=== PATIENT | female | born 1960 | race Caucasian/White ===

== ENCOUNTER 2020-09-01 22:40 | Inpatient (IN) | payer BC ==
[~2020-09-01] VITALS: Ht 152.4 cm; Wt 41.4 kg
[2020-09-01 23:55] LABS: BASOPHILS 0.3 % (0-2); EOSINOPHILS 0 % (0-7); HEMATOCRIT 44.7 % (36.0-48.0); HEMOGLOBIN 14.6 g/dL (12-16); MCH 33.7 pg (26.0-34.0); MCHC 32.6 g/dL (31.0-37.0); MCV 103.5 fL (80.0-100.0); MEAN PLATELET VOLUME 6.6 fL (7.4-10.4); MONOCYTES 4.4 % (2-11); NEUTROPHILS 61.3 % (40-80); PLATELET COUNT 443 10x3/uL (130-400); RBC 4.32 10x6/uL (4.00-5.40); RDW 12.6 % (11.5-14.5); WBC 12.4 10x3/uL (4.8-10.8)
[2020-09-02 00:01] LABS: ANION GAP 10.1 mmol/L (8-16); CALCIUM 7.4 mg/dL (8.5-10.1); CARBON DIOXIDE 28.9 mmol/L (21.0-32.0); CREATININE - SERUM 2.4 mg/dL (0.6-1.3)
[2020-09-02 00:08] LABS: ALBUMIN 2.7 g/dL (3.4-5.0); BILIRUBIN - TOTAL 0.18 mg/dL (0.2-1.3); MAGNESIUM - SERUM 2.1 mg/dL (1.8-2.4); PROTEIN - SERUM 5.6 g/dL (6.4-8.2)
--- NOTE | 2020-09-02 02:44 | NUR ---
PT REMAINS IN [facility]. YELLING AND CURSING OUT AT INTERVALS. TALKING IF HAVING CONVERSATION WITH SOMEONE. WILL CURSE AT STAFF AND THEN SMILE AT THEM AND SPEAK KINDLY. REFUSES TO GIVE URINE SPECIMEN AND REFUSES TO ALLOW CATH.
--- NOTE | 2020-09-02 05:00 | NUR ---
PT CONTINUES TO BE IN [facility] IN FR[facility] OF NURSES STAT[facility] FOR CLOSE MONITORING. SLEEPING. RESP DEEP AND REGULAR
--- NOTE | 2020-09-02 06:34 | NUR ---
PT SLEEPING. AROUSES TO VERBAL STIMULI. STATES SHE IS HOMELESS AND HAS NOWHERE TO GO. DR UQINONES AWARE
--- NOTE | 2020-09-02 06:59 | NUR ---
PT TO BE ADMITTED. MOVED TO ROOM 19. BREAKFAST TRAY ORDERED
[2020-09-02 08:00] VITALS: BP 109/64
--- NOTE | 2020-09-02 08:30 | NUR ---
PATIENT AWAKE. DENIES PAIN OR DISCOMFORT. DISCUSSED LIVING SITUATION WITH PATIENT AND DISCHARGE PLAN. PATIENT STATES SHE HAS BEEN HOMELESS IN [place]. CAME TO [place] TO LIVE WITH A COUSIN BUT WAS ASKED TO LEAVE. HOMELESS AT THIS TIME. CASE MANAGEMENT HAS BEEN CONSULTED TO ASSIST WITH PLANNING FOR DISCHARGE.
[2020-09-02 10:39] LABS: BASOPHILS 0.8 % (0-2); EOSINOPHILS 0.1 % (0-7); HEMATOCRIT 42.5 % (36.0-48.0); LYMPHOCYTES 26.5 % (15-50); MCH 34.2 pg (26.0-34.0); MCV 103.5 fL (80.0-100.0); MEAN PLATELET VOLUME 6.9 fL (7.4-10.4); MONOCYTES 2.6 % (2-11); PLATELET COUNT 442 10x3/uL (130-400); RBC 4.11 10x6/uL (4.00-5.40); RDW 12.6 % (11.5-14.5); WBC 13.6 10x3/uL (4.8-10.8)
[2020-09-02 11:07] LABS: INR 1.06 (0.85-1.17); PROTIME 12.8 SECONDS (11.6-15.0)
--- NOTE | 2020-09-02 11:30 | NUR ---
IV SITE LEFT WRIST INFILTRATED. IV INFUSION STOPPED AND SITE DC'D.
--- NOTE | 2020-09-02 12:30 | NUR ---
IV RESITED TO RIGHT FOREARM WITH 22GA CATHETER. MVI INFUSING AT 125ML/HR.
--- NOTE | 2020-09-02 12:30 | NUR ---
IV RESITED TO LEFT FOREARM WITH 22GA. MVI INFUSING AT 125/HR.
[2020-09-02 16:14] LABS: ANION GAP 16.5 mmol/L (8-16); CALCIUM 7.7 mg/dL (8.5-10.1); CARBON DIOXIDE 24.8 mmol/L (21.0-32.0); CREATININE - SERUM 1.9 mg/dL (0.6-1.3); POTASSIUM - SERUM 4.3 mmol/L (3.5-5.1)
--- NOTE | 2020-09-02 18:00 | NUR ---
DR. FLYNN HERE FOR CONSULT.
[2020-09-02 19:22] VITALS: BP 111/65
[2020-09-02 22:53] LABS: BILIRUBIN NEGATIVE (NEGATIVE); KETONE 1+ mg/dL (< 1+); NITRITE NEGATIVE (NEGATIVE); SQUAMOUS EPITHELIAL <1 HPF (0-4); UROBILINOGEN NORMAL mg/dL (< 2); WHITE CELLS - URINE 6 HPF (0-4)
[2020-09-02 23:02] LABS: UDS - AMPHET NEGATIVE QUAL (NEGATIVE); UDS - BARB NEGATIVE QUAL (NEGATIVE); UDS - BENZO POSITIVE QUAL (NEGATIVE); UDS - COCAINE NEGATIVE QUAL (NEGATIVE); UDS - OPIATE NEGATIVE QUAL (NEGATIVE); UDS - PCP NEGATIVE QUAL (NEGATIVE); UDS - THC POSITIVE QUAL (NEGATIVE)
[2020-09-02 23:22] VITALS: BP 100/62
[2020-09-03 02:15] VITALS: BP 106/60
[2020-09-03 05:50] LABS: BASOPHILS 0.5 % (0-2); EOSINOPHILS 0.1 % (0-7); HEMATOCRIT 37.6 % (36.0-48.0); HEMOGLOBIN 12.7 g/dL (12-16); LYMPHOCYTES 32.1 % (15-50); MCHC 33.8 g/dL (31.0-37.0); MCV 103.6 fL (80.0-100.0); MEAN PLATELET VOLUME 6.7 fL (7.4-10.4); NEUTROPHILS 63.3 % (40-80); PLATELET COUNT 359 10x3/uL (130-400); RBC 3.63 10x6/uL (4.00-5.40); RDW 12.4 % (11.5-14.5)
[2020-09-03 05:56] LABS: WBC 9.2 10x3/uL (4.8-10.8)
[2020-09-03 06:12] LABS: INR 1.07 (0.85-1.17); PROTIME 12.8 SECONDS (11.6-15.0)
[2020-09-03 06:33] LABS: ALBUMIN 2.4 g/dL (3.4-5.0); ALKALINE PHOSPHATASE 147 U/L (30-120); BILIRUBIN - TOTAL 0.35 mg/dL (0.2-1.3); CALCIUM 7.2 mg/dL (8.5-10.1); CARBON DIOXIDE 25.7 mmol/L (21.0-32.0); CHLORIDE - SERUM 107 mmol/L (98-107); CREATINE KINASE 60 UL (21-215); CREATININE - SERUM 1.5 mg/dL (0.6-1.3); GLUCOSE 84 mg/dL (74-106); MAGNESIUM - SERUM 1.9 mg/dL (1.8-2.4); POTASSIUM - SERUM 3.9 mmol/L (3.5-5.1); PROTEIN - SERUM 5.2 g/dL (6.4-8.2); SODIUM 140 mmol/L (136-145); eGFR NON AFRICAN AMERICAN 37 mL/min (90-120)
[2020-09-03 06:39] LABS: ALT (SGPT) 92 U/L (10-68); C-REACTIVE PROTEIN < 0.2 mg/dL (0.0-0.9); CALC OSMOLALITY 275 mosm/kg (275-300); LIPASE 210 U/L (73-393); UREA NITROGEN 6 mg/dL (7-18)
[2020-09-03 07:30] VITALS: BP 110/60
[2020-09-03 10:13] LABS: HEPATITIS C ANTIBODY <0.1 S/CO RAT (0.0-0.9)
--- NOTE | 2020-09-03 11:39 | NUR ---
REPORT TO NURSE JACEY
--- NOTE | 2020-09-03 12:10 | NUR ---
Arrived to unit from ER in stable condition via stretcher accompanied by hospital staff, oriented to unit, oriented to room, oriented to bed controls, currently lying in bed, awake/alert/oriented, able to T/R self ad harjeet, cont of B/B with BRPs per self ad harjeet, denies pain/other discomfort at this time, call light/phone/water within reach, no s/s of acute distress observed.
[2020-09-03 18:49] VITALS: BP 109/65; Ht 152.4 cm; Wt 41.4 kg
--- NOTE | 2020-09-03 19:35 | NUR ---
PT ALERT AND ORIENTED. PT STATES NO PROBLEMS AT THIS TIME. IV HOOKED UP TO FLUIDS BUT FLUIDS NOT GOING. STARTED FLUIDS. IV SITE CLEAN DRY AND INTACT. NO SIGNS OF INFECTION OR INFULTRATION. LUNG SOUNDS CLEAR. BOWEL SOUNDS ACTIVE. SKIN CLEAN DRY AND INTACT. PT STATES NO PROBLEMS AT THIS TIME. CALL LIGHT IN REACH. BED LOWERED AND LOCKED. BED RAILS UP X2.
[2020-09-03 21:43] VITALS: BP 99/57
[2020-09-04 02:18] VITALS: BP 109/60
[2020-09-04 05:53] LABS: ALBUMIN 2.6 g/dL (3.4-5.0); ANION GAP 9.3 mmol/L (8-16); BILIRUBIN - TOTAL 0.3 mg/dL (0.2-1.3); CALCIUM 7.8 mg/dL (8.5-10.1); CARBON DIOXIDE 29.8 mmol/L (21.0-32.0); POTASSIUM - SERUM 4.1 mmol/L (3.5-5.1); PROTEIN - SERUM 5.5 g/dL (6.4-8.2)
[2020-09-04 06:00] LABS: BASOPHILS 0.7 % (0-2); EOSINOPHILS 0.4 % (0-7); HEMATOCRIT 37.8 % (36.0-48.0); HEMOGLOBIN 12.6 g/dL (12-16); LYMPHOCYTES 41.8 % (15-50); MCH 34.6 pg (26.0-34.0); MCHC 33.3 g/dL (31.0-37.0); MCV 103.8 fL (80.0-100.0); MEAN PLATELET VOLUME 7.1 fL (7.4-10.4); MONOCYTES 5.8 % (2-11); NEUTROPHILS 51.3 % (40-80); PLATELET COUNT 326 10x3/uL (130-400); RBC 3.64 10x6/uL (4.00-5.40); RDW 12.1 % (11.5-14.5)
[2020-09-04 06:01] LABS: CREATININE - SERUM 1.1 mg/dL (0.6-1.3); MAGNESIUM - SERUM 2.4 mg/dL (1.8-2.4)
[2020-09-04 06:31] LABS: WBC 6.1 10x3/uL (4.8-10.8)
--- NOTE | 2020-09-04 07:00 | NUR ---
Lying in bed, awake/alert/oriented, T/R self ad harjeet, cont of B/B with BRPs per self ad harjete, will void in trash can while the BSC sits right beside it, denies pain/other discomfort at this time, call light/phone/water within reach, no s/s of acute distress observed.
[2020-09-04 08:49] VITALS: BP 107/61
[2020-09-04] MEDS ORDERED: LEXAPRO10 MG PO (10:05)
[2020-09-04] MEDS ORDERED: TRAZODONE HCL50 MG PO (10:05)
--- NOTE | 2020-09-04 12:49 | NUR ---
SCRIPTS CALLED TO PAMELA [phone]
--- NOTE | 2020-09-04 12:53 | NUR ---
PT DISCHARGED TO ER ENTRANCE FOR RIDE. IV REMOVED AND PAPERS SIGNED. SCRIPT TO PAMELA.
== END 2020-09-04 12:25 | disposition home or self-care (01) | DRG 682 ==
LOC: D.ER 22:40 → D.EDHOLD 09-02 06:49 → OBSVTIME 09-02 06:49 → D.EDHOLD 09-02 06:49 → D.M2 09-02 16:39
PROVIDERS: Family Medicine; Internal Medicine; ADMIT Family Medicine; ATTEND Family Medicine
DX: N17.9 Acute kidney failure, unspecified (principal); G92 Toxic encephalopathy; E87.2 Acidosis; F33.0 Major depressive disorder, recurrent, mild; F10.20 Alcohol dependence, uncomplicated; G47.00 Insomnia, unspecified; Z59.0 Homelessness